=== PATIENT | male | born 1950 | race Caucasian/White ===

== ENCOUNTER 2025-04-13 08:41 | Day surgery (SDC) | payer MEDICARE, BC ==
[~2025-04-13] VITALS: Ht 167.6 cm; Wt 59.1 kg
[~2025-04-13 08:41] MED LIST: ATOR20TA66 PO; HYDR12.55 PO; LISI20TA28 PO; ringers solution, lacted 1,000 ML IV SCH
[2025-04-13 08:56] VITALS: BP 127/60; PULSE 66; RESP 16; TEMP 97.9; O2SAT 100
[2025-04-13] MEDS ORDERED: LIDOcaine 2% (20mg/ml) 5ml vial ONE (09:17)
[2025-04-13] MEDS ORDERED: propofol 10mg/ml 20ml vial IV ONE (11:26)
[2025-04-13] MEDS ORDERED: fentaNYL/PF 50MCG/1 ML 2ML syringe ONE (11:36)
[2025-04-13] MEDS ORDERED: midazolam 1 mg/ML 2ml injection ONE (11:36)
[2025-04-13 11:49] VITALS: BP 104/58; PULSE 54; RESP 16; O2SAT 100
[2025-04-13 12:00] VITALS: BP 105/60; PULSE 60; RESP 13; O2SAT 98
[2025-04-13 12:10] VITALS: BP 108/63; PULSE 53; RESP 13; O2SAT 97
[2025-04-13 12:20] VITALS: BP 125/66; PULSE 59; RESP 14; O2SAT 99
[2025-04-13 12:30] VITALS: BP 120/66; PULSE 60; RESP 7; O2SAT 100
--- NOTE | 2025-04-14 14:57 | PATHOLOGY REPORT ---
[facility] [address] [place] [address] SURGICAL PATHOLOGY REPORT CaseNumber: [id number] Surgeon:Sharmin Krause M.D. CLINICAL INFORMATION CLINICAL INFORMATION: Heme positive stool. DIAGNOSIS DIAGNOSIS: GASTRIC ANTRUM, BIOPSIES X 2 - NO SIGNIFICANT INFLAMMATION, EDEMA, OR VASCULAR CONGESTION - NO INTESTINAL METAPLASIA - NO DYSPLASIA OR MALIGNANCY - NO H. PYLORI ORGANISMS BY IMMUNOHISTOCHEMISTRY MICROSCOPIC DESCRIPTION MICROSCOPIC DESCRIPTION: Reviewed is a single H&E-stained slide showing serial sections and levels of two fragments of gastric antral-type mucosa. There is no significant inflammation, edema, or vascular congestion. There is no intestinal metaplasia. There are no dysplastic or neoplastic features. Also, no H. pylori organisms are highlighted by immunohistochemistry. GROSS DESCRIPTION GROSS DESCRIPTION: Received in a container of formalin labeled with the patient's name, number, and "antrum BX" are 2 pieces of lafleur tissue 0.4 x 0.1 x 0.1 and 0.6 x 0.1 x 0.1 cm. The specimen is entirely submitted as A1. The time at which the specimen was removed was 1143. The time at which the specimen was placed in formalin was 1143. Electronically signed by: Feliciano Mckeon M.D. 04/14/2025 2:27:00 PM
== END 2025-04-13 12:49 | disposition home or self-care (01) ==
LOC: GI LAB 08:41
PROVIDERS: ATTEND Internal Medicine Gastroenterology
DX: R19.5 Other fecal abnormalities (principal); I10 Essential (primary) hypertension; E78.2 Mixed hyperlipidemia; Z79.899 Other long term (current) drug therapy
CPT/HCPCS: 43239; 82948; 88305; 88342; A4620; J2003; J2250; J2704; J3010; J7040; J7120; Z7512; Z7610